=== PATIENT | female | born 1945 | race Native Hawaiian/Other Pacific Islander ===

== ENCOUNTER 2022-06-06 14:24 | Outpatient (CLI) | payer OTHER, BC ==
[2022-06-06 14:41] LABS: PLATELET COUNT 228 K/uL (152-353)
== END 2022-06-06 22:44 | disposition home or self-care (01) ==
LOC: LAB 14:24
PROVIDERS: ATTEND Internal Medicine Infectious Disease
DX: T84.53XA Infection and inflammatory reaction due to internal right knee prosthesis, initial encounter (principal)
CPT/HCPCS: 82565; 84075; 84460; 85027